=== PATIENT | female | born 1940 | race Caucasian/White ===

== ENCOUNTER → 2019-04-18 | Outpatient (CLI) | payer OTHER ==
[~2019-04-18] VITALS: Ht 165.1 cm; Wt 83.9 kg
[~2019-04-18] MED LIST: ASPIR 8181 MG PO; CENTRUM SILVER1 EAC4 PO; GLUCOSAMINE &1 EACH PO; HYDROCHLOROTH12.5 M1 PO; IBUPROFEN 200200 M1 PO; LISINOPRIL10 MG PO; LISINOPRIL20 MG PO; MIRALAX17 GM PO; REQUIP0.5 MG PO; ULTRAM50 MG PO; ZANTAC 150MG T150 MG PO
--- NOTE | ~2019-04-18 | P ---
[facility] [place] [address] PROCEDURE REPORT Name: MARIA G WILSON ITZEL Room #: REG ADDIS MBg.#: [id number] Admission: 04/18/19 ������������������ Attend Phys: Andrea Bonner MD Discharge: ������������������ Date of : 42 Report #: [id number] THIS REPORT FOR: //name// CC: Lucas Bonner TYPE OF REPORT: Outpatient colonoscopy. BRIEF HISTORY: The patient is a 78-year-old woman who has had a recent change in bowel habits. Also, her mother had colon cancer at age 83 and daughter had colon cancer at age 53. PREOPERATIVE DIAGNOSIS: Change in bowel habits and family history of colon cancer. POSTOPERATIVE DIAGNOSES: 1. Moderate sigmoid diverticular disease with scattered diverticula, proximal colon. 2. Small internal hemorrhoids. MEDICATIONS: Deep sedation with propofol per Anesthesia. SPECIMEN: None. ESTIMATED BLOOD LOSS: None. PROCEDURE: Colonoscopy to cecum and terminal ileum. FINDINGS: Prior to propofol sedation, procedure of colonoscopy discussed with the patient as well as potential risks and its complications. She indicates she understands and desires to proceed. DESCRIPTION OF PROCEDURE: With the patient in left lateral decubitus position, digital examination was completed, which revealed no abnormalities. Subsequently, the Olympus video colonoscope was introduced in the rectum, advanced under direct vision to the cecum. Done with minimal difficulty. Cecum was identified by the ileocecal valve and the appendiceal orifice. I was able to visualize the distal segment of the terminal ileum, which was inspected and noted to be unremarkable. At that point, the scope was slowly withdrawn and careful circumferential views obtained including retroflexing the scope in the ascending colon. Upon slow withdrawal of the scope, the prep was good. The mucosa was within normal limits, normal vascular pattern and normal light reflex. As we withdrew the scope, there was few scattered diverticula in proximal colon. There was no endoscopic evidence of diverticulitis. No neoplasms were seen on this examination. The scope was withdrawn to the [facility] [address] [place] [address] PROCEDURE REPORT Name: MARIA G WILSON [facility] Room #: REG [facility] M..#: [id number] Admission: 04/18/19 ������������������ Attend Phys: Andrea Bonner MD Discharge: ������������������ Date of : 42 Report #: [id number] colon. Again, she is seen having diverticular disease without endoscopic evidence of diverticulitis. Scope was withdrawn in the rectum. Upon retroflexion, no abnormalities were seen. Scope was withdrawn. The patient tolerated the procedure well. CONDITION OF THE PATIENT UPON DISCHARGE: Following procedure, the patient drowsy, aroused, conversant and will be discharged home when fully ambulatory. INSTRUCTIONS TO THE PATIENT AND FAMILY AT THE TIME OF DISCHARGE: No neoplastic lesions were seen. As far as change in bowel habits, I do not see any obstructing lesions. However, she does have a significant amount of sigmoid diverticular disease, which may be a factor. Suggest high-fiber diet. She has been using MiraLax and she may continue to do so. Due to family history of colon cancer, suggest to return in 5 years for followup colonoscopy. Last colonoscopy was in 2010. Withdrawal time from the cecum was 15 minutes and 18 seconds. ��������������������������������������������� ���������������������������������������� By: ��������������������������������������������� [id number] Andrea Bonner MD /nt
== END | disposition home or self-care (01) ==
LOC: GI 08:53
DX: K57.30 Diverticulosis of large intestine without perforation or abscess without bleeding (principal); K64.8 Other hemorrhoids; Z86.010 Personal history of colon polyps; I10 Essential (primary) hypertension; K21.9 Gastro-esophageal reflux disease without esophagitis; Z90.49 Acquired absence of other specified parts of digestive tract; Z90.710 Acquired absence of both cervix and uterus; Z98.890 Other specified postprocedural states; Z79.899 Other long term (current) drug therapy; Z79.82 Long term (current) use of aspirin
CPT/HCPCS: 62110; 62900